=== PATIENT | male | born 1960 | race Caucasian/White ===

== ENCOUNTER 2018-01-03 18:40 | Emergency (ER) | payer MEDICARE, SELFPAY ==
[2018-01-03 18:41] VITALS: BP 152/93; PULSE 94; RESP 18; TEMP 37.4; O2SAT 97; BMI 18.4
[2018-01-03 19:51] VITALS: BP 145/70; PULSE 80; RESP 14; O2SAT 95; O2SAT 96
--- NOTE | 2018-01-03 20:12 | RAD_ITS ---
STUDY: X-RAY CHEST REASON FOR EXAM: Male, 57 years old. Cough. TECHNIQUE: Frontal and lateral views of the chest. COMPARISON: January 15, 2016 FINDINGS: There is stable hyperexpansion. There is no demonstrated pleural abnormality. Normal size heart. Normal mediastinum and enoch. Normal visualized pulmonary arteries. Normal visualized aortic arch and descending thoracic aorta. Normal visualized thoracic spine. Normal visualized ribs, clavicles, and shoulders. There is no demonstrated abnormality of the visualized soft tissue structures of the upper abdomen. RAD/Chest PA and Lateral IMPRESSION: Stable hyperexpansion without other significant abnormality. Electronically Signed: Sebastián Darden MD at 21:06 EST , Service support ,
[2018-01-03 21:10] VITALS: BP 135/70; PULSE 85; RESP 14; O2SAT 97
--- NOTE | 2018-01-03 21:18 | ED.VISSUMM ---
- ER Visit Summary Date of Service: 01/03/18 Chief Complaint: Cough History of Present Illness: The patient is a 57 M resents with a cough. He has had a cough for about 2-3 days. He vomited once yesterday. He also reports some congestion and rhinorrhea. No fevers chest pain or shortness of breath. Smoker and uses albuterol as needed at home. Physical Examination: Afebrile temperature was 99.4 vitals otherwise unremarkable with a pulse ox of 97% on room air No distress able speak in full sentences Patient does have some scattered wheezing and rhonchi but is in no respiratory distress able speak in full sentences no retractions Heart regular rate and rhythm Abdomen soft Test Results: Chest x-ray shows stable hyperexpansion otherwise unremarkable Emergency Department Course and Treatment: Chest x-ray findings and long smoking history I suspect the patient does have a component of COPD. No focal pneumonia. He was prescribed antibiotics and prednisone. He was advised to follow-up as an outpatient was discharged home. Treatment Plan: [] Disposition: Discharge Impression: Bronchitis This note was generated with [employer] dictation software. It may contain incorrect words, spelling, and punctuation that were not noted in review of the chart prior to signing ED Disposition - Plan for ED Patient: Chief Complaint: Cough Referrals: Mika Barrera MD [Primary Care Provider] -
--- NOTE | 2018-01-03 21:21 | ED.DEP ---
ED Disposition - Plan for ED Patient: Chief Complaint: Cough Instructions: Acute Bronchitis Prescriptions: Prednisone [Deltasone] 60 mg PO DAILY #15 tab Doxycycline Hyclate 1 tab PO BID #20 cap Referrals: Mika Barrera MD [Primary Care Provider] -
[2018-01-03 21:22] VITALS: BP 138/75; PULSE 88; RESP 14; O2SAT 99
== END 2018-01-03 21:26 | disposition home or self-care (01) ==
PROVIDERS: Emergency Provider Emergency Medicine; Family Provider Family Medicine; PCP Family Medicine
DX: J40 Bronchitis, not specified as acute or chronic (principal); R11.2 Nausea with vomiting, unspecified; I10 Essential (primary) hypertension; F17.200 Nicotine dependence, unspecified, uncomplicated; Z79.899 Other long term (current) drug therapy
CPT/HCPCS: 71046; 99282; A4216

== ENCOUNTER → 2019-04-02 | Outpatient (CLI) | payer MEDICARE, SELFPAY ==
--- NOTE | 2019-04-02 10:51 | PFTCOMP ---
COMPLETE PULMONARY FUNCTION TEST INTERPRETATION Brief HPI: Patient is a 58 year old male, currently under the care of Akosua Ramirez, who presents to [facility] for complete pulmonary function tests secondary to diagnosis of COPD. Respiratory therapist reports good effort and reproducible results. Interpretation: Forced expiration spirometry shows a severe large airways obstructive ventilatory defect with an FEV1 of 46% predicted. There is a significant bronchodilator response in FVC and FEV1 by strict ATS criteria. Spirograms are of good quality and plateau slowly, indicating slowly emptying areas of the lungs. The respiratory flow volume loop shows decreased expiratory flow rates at all lung volumes consistent with airway obstruction. Lung volumes by body plethysmography show a decreased total lung capacity at 6.15 L, 78% predicted. FRC and RV are elevated out of proportion. Lung volume measurements are consistent with air-trapping. Diffusion capacity by carbon monoxide is normal at 82% predicted. The airway resistance is elevated. No previous pulmonary function tests were available for review. Impression: Partially reversible severe mixed ventilatory defect resulting in air trapping.
== END | disposition home or self-care (01) ==
LOC: PSN 08:36
PROVIDERS: Family Provider Nurse Practitioner Family; PCP Nurse Practitioner Family; Referring Provider Nurse Practitioner Family; Visit Provider Nurse Practitioner Family
DX: J44.9 Chronic obstructive pulmonary disease, unspecified (principal)
CPT/HCPCS: 94060; 94726; 94729

== ENCOUNTER → 2019-10-07 12:30 | Outpatient (CLI) | payer MEDICARE, SELFPAY ==
[2019-10-07 14:04] LABS: ALB/GLOB Ratio 1.1 RATIO (0.9-2.4); AST(SGOT) 26 U/L (15-37); Alanine Aminotransfer ALT/SGPT 19 U/L (16-61); Albumin, Serum 4.1 g/dL (3.2-5.0); Alkaline Phosphatase 68 U/L (45-117); Anion Gap 9 (5-15); BUN 6 mg/dL (7-18); Calcium,Total 9.1 mg/dL (8.5-10.1); Chloride 89 mmol/L (98-107); Cholesterol 134 mg/dL (200); Creatinine, Serum 0.75 mg/dL (0.70-1.30); EST Glomerular Filtration Rate 112 mL/min (>60); Est Glom Filt Rate - Afr Amer 136 mL/min (>60); Globulin 3.6 g/dL (2.2-4.2); Glucose 84 mg/dL (74-106); High Density Lipoprotein 48 mg/dL; Potassium 4.3 mmol/L (3.5-5.1); Protein, Total 7.7 g/dL (6.4-8.2); Sodium Level 127 mmol/L (136-145); Triglycerides 75 mg/dL; Very Low Density Lipoprotein 15 mg/dL (5-40)
== END ==
PROVIDERS: Family Provider Nurse Practitioner Family; PCP Nurse Practitioner Family; Referring Provider Nurse Practitioner Family; Visit Provider Nurse Practitioner Family
DX: I10 Essential (primary) hypertension (principal)
CPT/HCPCS: 36415; 80053; 80061

== ENCOUNTER 2019-10-19 17:53 | Emergency (ER) | payer MEDICARE, SELFPAY ==
[2019-10-19 17:53] VITALS: BP 155/91; PULSE 77; RESP 20; TEMP 36.6; O2SAT 100; BMI 21.6
[2019-10-19 18:38] VITALS: BP 151/96; PULSE 74; RESP 16; O2SAT 95
[2019-10-19 18:42] LABS: Hematocrit 36.1 % (40-54); Hemoglobin 13.1 g/dL (13.0-16.5); Mean Corp Hgb Conc 36.3 g/dL (32-36); Mean Corpuscular Hgb 32.7 pg (27.0-32.0); Mean Platelet Vol. 9.5 fl (6.2-12.0); Platelet Count 207 K/mm3 (150-450); RBC Distribution Width CV 12.6 % (11.6-14.6); RBC Distribution Width SD 41.2 fl (35.1-43.9); Red Blood Count 4.01 M/mm3 (4.6-6.2); White Blood Count 7.3 K/mm3 (4.4-11.0)
--- NOTE | 2019-10-19 18:53 | ED.DCSUM_ITS ---
History of Present Illness Chief Complaint: Flank Pain Informant: Patient, Family Onset: Days - Left flank pain for 3 days Context: Sudden Onset Timing: Continuous, Waxes and wanes Quality: Pain Location: Left flank lower back Current Severity: Mild Maximum Severity: Severe Worsened by: Any type of movement and car ride Relieved by: Nothing Associated Symptoms: Bruising easily, change in color urine and heavy alcohol use Narrative: She is a 59-year-old male who reports increased abdominal girth, weight gain, dark-colored urine and bruising more easily. He presents with left flank pain which he believes is secondary to renal calculi. He has no history of renal or ureteral calculus. He denies blood in his urine. He does report urgency. He does drink heavily daily. He states he has been bruising easily for the past couple of weeks. He denies black or maroon stool. He denies fever, chills or night sweats. He denies bone pain. He denies any HEENT exam symptoms. He denies cardiac or respiratory symptoms. He denies abdominal pain. He does report mild swelling of his lower extremities. Prior similar symptoms: Yes Recent Illness/Hospitalization: No - Past Medical History (1) Chest pain Status: Acute (2) Hyponatremia Status: Acute (3) Alcohol abuse Status: Chronic (4) Hypertension Status: Chronic (5) Osteoarthritis Status: Chronic Past Medical History - Allergies and Home Meds Allergies/Adverse Reactions: Allergies cortisone Allergy (Verified 10/19/19 17:56) Unknown Primary Care Physician: Akosua Ramirez NP-C [Primary Care Provider] - Prior records reviewed: Yes Surgical History: - - Arthroscopies of both knees, right leg surgery secondary to trauma, left clavicular surgery secondary to trauma, and surgery on his stomach secondary to gastric ulcer,shoulder trauma, steel in right tib fib Lives: Spouse/ Significant Other Smoking Status: Current every day smoker Alcohol: Heavy Drugs: None - Family History Maternal Family History: Reports: Hypertension, - - Hypothyroidism Paternal Family History: Reports: Cancer Review of Systems General: Reports: Malaise. Denies: Chills, Fever, Subjective, Sweats, Weight loss Eyes: Denies: Visual changes - bilaterally, Blurred Vision - bilaterally ENT: Denies: Bilateral ear pain, Rhinorrhea, Sore throat Cardiovascular: Denies: Chest pain, Palpitations Respiratory: Denies: Dyspnea, Cough, Dyspnea on exertion Gastrointestinal: Denies: Abdominal pain, Nausea, Vomiting, Constipation, Melena Genitourinary: Reports: - - Patient reports urgency. Denies: Dysuria, Hematuria, Frequency Musculoskeletal: Reports: Back pain, Swelling. Denies: Myalgias, Arthralgias, Neck pain, Extremity Pain Skin: Reports: Wounds. Denies: Rash Neurological: Reports: Weakness. Denies: Headache, Parasthesia, Numbness Psych: Denies: Depression Endocrine: Denies: Polyuria, Polydipsia Hematologic: Reports: Easy bruising, Easy bleeding Allergy: Denies: Uticaria Physical Exam Vital Signs/Narrative: Vital Signs Temp Pulse Resp BP Pulse Ox 10/19/19 18:38 74 16 151/96 H 95 10/19/19 17:53 97.8 F 77 20 H 155/91 H 100 Inital Vital Signs reviewed: Yes General: Well nourished, Well developed, No Acute Distress Head: Normocephalic, Atraumatic Eyes: Perrl, EOMI, Scleral icterus. Negative for: Pale conjunctiva ENT: No rhinorrhea, TM's clear, Dry mucous membranes Neck: Supple, Nontender, No lymphadenopathy, No JVD Cardiovascular: Regular rate, Regular rhythm, No murmurs, Normal S1, Normal S2 Respiratory: No distress, CTA bilaterally, Chest nontender Abdomen: Soft, Nontender, Nondistended, Normal bowel sounds, No masses Back: CVA tenderness, - - Very spinal pain and pain over areas of bruising bilaterally. Negative for: Nontender, Normal Inspection, Spinal tenderness Extremities: Nontender, Edema, - - Couple of abrasions and bruises upper and lower extremity. Negative for: No edema Skin: No rash, Jaundice, Trauma. Negative for: Normal color, Cyanosis, Diaphoresis Neurological: Alert, Oriented x3, Cranial nerves II-XII grossly intact, Normal Strength, Normal Sensation, Normal Gait Psychological: Normal affect Diagnostic/Tx/Re-eval Laboratory Results 10/19/19 10/19/19 10/19/19 18:35 18:35 18:35 WBC 7.3 RBC 4.01 L Hgb 13.1 Hct 36.1 L MCV 90.0 MCH 32.7 H MCHC 36.3 H RDW Std Deviation 41.2 RDW Coeff of Ximena 12.6 Plt Count 207 MPV 9.5 PT 12.9 INR 1.0 Sodium 127 L Potassium 4.1 Chloride 91 L Carbon Dioxide 30.0 Anion Gap 6 BUN 9 Creatinine 0.81 Estim Creat Clear Calc 107.52 Est GFR (MDRD) Af Amer 125 Est GFR (MDRD) Non-Af 104 BUN/Creatinine Ratio 11.2 Glucose 102 Calcium 9.1 Total Bilirubin 0.80 Direct Bilirubin 0.30 AST 41 H ALT 21 Alkaline Phosphatase 76 Total Protein 7.7 Albumin 4.1 Globulin 3.6 Lipase 96 Urine Color Urine Clarity Urine pH Ur Specific [place] Urine Protein Urine Glucose (UA) Urine Ketones Urine Occult Blood Urine Nitrite Urine Bilirubin Urine Urobilinogen Ur Leukocyte Esterase Urine RBC Urine WBC Ur Squamous Epith Cells Urine Bacteria Urine Mucus 10/19/19 20:00 WBC RBC Hgb Hct MCV MCH MCHC RDW Std Deviation RDW Coeff of Ximena Plt Count MPV PT INR Sodium Potassium Chloride Carbon Dioxide Anion Gap BUN Creatinine Estim Creat Clear Calc Est GFR (MDRD) Af Amer Est GFR (MDRD) Non-Af BUN/Creatinine Ratio Glucose Calcium Total Bilirubin Direct Bilirubin AST ALT Alkaline Phosphatase Total Protein Albumin Globulin Lipase Urine Color Yellow Urine Clarity Clear Urine pH 7.0 Ur Specific [place] 1.010 Urine Protein Negative Urine Glucose (UA) 50 H Urine Ketones Negative Urine Occult Blood Negative Urine Nitrite Negative Urine Bilirubin Negative Urine Urobilinogen 4 H Ur Leukocyte Esterase Negative Urine RBC 0 SEEN Urine WBC 0 SEEN Ur Squamous Epith Cells 0 SEEN Urine Bacteria 0 SEEN Urine Mucus 0 SEEN Work is remarkable for hyponatremia. His sodium is similar to prior results. Platelet count is normal. PT/INR is normal. Suspect his bruising is secondary to his alcohol and probably falling. Presume his hyponatremia is secondary to alcohol consumption as well as free water consumption. Since he is asymptomatic we will discharge to home - Medical Decision Making Story of heavy drinking multiple bruises and concern for jaundice will obtain li amber enzymes, PT/INR to assess liver function, UA to assess for bilirubin and blood and CBC to assess platelet count. Patient's back pain is mechanical and reproducible. Discharged home with appropriate home-going instructions ED Disposition - Plan for ED Patient: Disposition: Home or Assisted Living Diagnosis: Contusion of lower back and pelvis, initial encounter, Hyponatremia, Easy bruising Instructions: CONTUSION, Back, Hyponatremia Prescriptions: Hydrocodone Bitart/Apap 5-325 [[place] 5MG-325MG] 1 tablet PO Q6H PRN PRN 3 Days #10 tablet PRN Reason: Pain Transmission Status: Received by YANIRA PATRICK-1954 MAKENZIE ARROYO Referrals: Akosua Ramirez, SCALEMAN-C [Primary Care Provider] - 1 Week if not improving
[2019-10-19 19:00] LABS: AST(SGOT) 41 U/L (15-37); Alanine Aminotransfer ALT/SGPT 21 U/L (16-61); Albumin, Serum 4.1 g/dL (3.2-5.0); Alkaline Phosphatase 76 U/L (45-117); Anion Gap 6 (5-15); BUN 9 mg/dL (7-18); BUN/Creat Ratio 11.2 RATIO (10-20); Calcium,Total 9.1 mg/dL (8.5-10.1); Chloride 91 mmol/L (98-107); Creatinine, Serum 0.81 mg/dL (0.70-1.30); EST Glomerular Filtration Rate 104 mL/min (>60); Est Glom Filt Rate - Afr Amer 125 mL/min (>60); Estimated Creatinine Clearance 107.52 ml/min; Globulin 3.6 g/dL (2.2-4.2); Glucose 102 mg/dL (74-106); Lipase 96 U/L (73-393); Potassium 4.1 mmol/L (3.5-5.1); Protein, Total 7.7 g/dL (6.4-8.2); Sodium Level 127 mmol/L (136-145)
[2019-10-19 19:02] LABS: Prothrombin Time (Protime)PT. 12.9 SECONDS (11.7-14.9)
[2019-10-19 19:30] VITALS: BP 132/92; PULSE 67; RESP 21; O2SAT 95
[2019-10-19 20:08] LABS: Bacteria 0 SEEN /hpf (None Seen); Mucous, Urine 0 SEEN /hpf (<or=2+); Red Blood Cells-Urine 0 SEEN /hpf (0-5); Squamous Epithelial Cells - UA 0 SEEN /hpf (0-5); White Blood Cells 0 SEEN /hpf (0-5)
[2019-10-19 20:18] LABS: Color, Urine Yellow (Yellow); Glucose, Dipstick 50 mg/dl (Normal); Ketone-Dipstick Negative (Negative); Leukocyte Esterase-Dipstick Negative /ul (Negative); Nitrite-Dipstick Negative (Negative); Occult Blood-Urine Negative /ul (Negative); Protein-Dipstick Negative (Negative); Urine Bilirubin Dipstick Negative (Negative); Urine Clarity Clear (Clear); Urine Urobilinogen 4 mg/dl (Normal)
[2019-10-19 21:23] VITALS: BP 146/92; PULSE 75; RESP 20; O2SAT 96
== END 2019-10-19 21:28 | disposition home or self-care (01) ==
PROVIDERS: Emergency Provider Emergency Medicine; Family Provider Nurse Practitioner Family; PCP Nurse Practitioner Family
DX: S30.0XXA Contusion of lower back and pelvis, initial encounter (principal); E87.1 Hypo-osmolality and hyponatremia; S40.819A Abrasion of unspecified upper arm, initial encounter; S80.819A Abrasion, unspecified lower leg, initial encounter; S40.029A Contusion of unspecified upper arm, initial encounter; S80.10XA Contusion of unspecified lower leg, initial encounter; X58.XXXA Exposure to other specified factors, initial encounter; Y93.9 Activity, unspecified; Y92.9 Unspecified place or not applicable; I10 Essential (primary) hypertension; M19.90 Unspecified osteoarthritis, unspecified site; Z79.899 Other long term (current) drug therapy; F10.99 Alcohol use, unspecified with unspecified alcohol-induced disorder; F17.200 Nicotine dependence, unspecified, uncomplicated
CPT/HCPCS: 80048; 80076; 81001; 83690; 85027; 85610; 99283; A4216